=== PATIENT | female | born 2000 | race Two or more races ===

== ENCOUNTER 2025-05-07 07:03 | Emergency (ER) | payer MEDICAID ==
[~2025-05-07] VITALS: Ht 157.5 cm; Wt 73.9 kg
[2025-05-07 07:05] VITALS: TEMP 98.4
--- NOTE | 2025-05-07 07:34 | ED.PDOC ---
DIALYSIS TECHNICIAN HPI Comments A 25 YEAR OLD FEMALE PRESENTS TO THE ED WITH COMPLAINT OF RIGHT-SIDED PELVIC CRAMPING DURING . PATIENT STATES SHE IS CURRENTLY ABOUT 8 WEEKS AND BEGAN TO EXPERIENCE RIGHT-SIDED PELVIC PAIN OVER THE LAST 3 DAYS. PATIENT REPORTS SHE HAS A HISTORY OF AN ECTOPIC IN 2022, AND STATES HER PAIN IS SIMILAR TO WHEN SHE HAD THIS ECTOPIC , PROMPTING HER TO VISIT THE ED TODAY FOR EVALUATION. PATIENT DENIES VAGINAL BLEEDING/SPOTTING, DYSURIA, HEMATURIA, VAGINAL DISCHARGE, FEVER, CHILLS, SHORTNESS OF BREATH, CHEST PAIN, ABDOMINAL PAIN, NAUSEA, VOMITING, HEADACHE, OR OTHER COMPLAINTS. NO OTHER SYMPTOMS OR MODIFYING FACTORS AT THIS TIME. PATIENT IS ALERT, ORIENTED X 4, AND HAS STEADY GAIT. Chief Complaint: Time Seen by MD: 07:07 Reviewed Notes: Nurses Notes, Medications, Allergies Allergies: Coded Allergies: NO KNOWN ALLERGIES (Unverified , 07/26/10) Information Source: Patient Mode of Arrival: Ambulatory Timing: Days Prehospital treatment: None Severity: Moderate Vaginal Discharge: None Vaginal Lesions: None Vaginal Mass: None Onset Of Mass/Bleeding: Spontaneous Sexual Activity: Last Consensual Perley: Unknown Control: None History of: Current Blood Type: Unknown Symptoms of Possible : None Associated Signs and Symptoms: Cramping Past Medical History PAST MEDICAL HISTORY: Denies Surgical History: Denies all surgeries FORCE DISPATCHER History: Ectopic Family History Family History: Reviewed,noncontributory to illness Social History Smoker: Non-Smoker Alcohol: Denies ETOH Use Drugs: Denies Drug Use Lives In: Home Constitutional: denies: chills, diaphoresis, fatigue, fever, malaise, sweats, weakness, others EENTM: denies: blurred vision, double vision, ear bleeding, ear discharge, ear drainage, ear pain, ear ringing, eye pain, eye redness, hearing loss, mouth pain, mouth swelling, nasal discharge, nose bleeding, nose congestion, nose pain, photophobia, tearing, throat pain, throat swelling, voice changes, others Respiratory: denies: cough, hemoptysis, orthopnea, SOB at rest, shortness of breath, SOB with excertion, stridor, wheezing, others Cardiovascular: denies: chest pain, dizzy spells, diaphoresis, Dyspnea on exertion, edema, irregular heart beat, left arm pain, lightheadedness, palpitations, PND, syncope, others Gastrointestinal: denies: abdomen distended, abdominal pain, blood streaked bowels, constipated, diarrhea, dysphagia, difficulty swallowing, hematemesis, melena, nausea, poor appetite, poor fluid intake, rectal bleeding, rectal pain, vomiting, others Genitourinary: reports: pain (RIGHT-SIDED PELVIC PAIN), ; denies: abnormal vagina bleeding, burning, dyspareunia, dysuria, flank pain, frequency, hematuria, incontinence, vagina discharge, urgency, others Neurological: denies: dizziness, fainting, headache, left sided numbness, left sided weakness, numbness, paresthesia, pre-existing deficit, right sided numbness, right sided weakness, seizure, speech problems, tingling, tremors, weakness, others Musculoskeletal: denies: back pain, gout, joint pain, joint swelling, muscle pain, muscle stiffness, neck pain, others Integumetry: denies: bruises, change in color, change in hair/nails, dryness, laceration, lesions, lumps, rash, wounds, others Allergic/Immunocompromised: denies: Difficulty Healing, Frequent Infections, Hives, Itching, others Hematologic/Lymphatic: denies: anemia, blood clots, easy bleeding, easy bruising, swollen glands, others Endocrine: denies: excessive hunger, excessive sweating, excessive thirst, excessive urination, flushing, intolerance to cold, intolerance to heat, unexplained weight gain, unexplained weight loss, others Psychiatric: denies: anxiety, bipolar disorder, depression, hopeless, panic disorder, schizophrenia, sleepless, suicidal, others All Other Systems: Reviewed and Negative Physical Exam General Appearance: No Apparent Distress, Normal HEENT: Normal ENT Inspection, PERRL/EOMI, Pharynx Normal, TMs Normal Neck: Full Range of Motion, Non-Tender, Normal, Normal Inspection Respiratory: Chest Non-Tender, Lungs Clear, No Accessory Muscle Use, No Respiratory Distress, Normal Breath Sounds Cardiovascular: No Edema, No JVD, No Murmur, No Gallop, Normal Peripheral Pulses, Regular Rate/Rhythm Breast Exam: Deferred Gastrointestinal: No Organomegaly, Non Tender, No Pulsatile Mass, Normal Bowel Sounds, Soft Genitalia: Deferred Pelvic: Normal External Exam, Other (TENDERNESS RIGHT PELVIC, NO GUARDING AND R EBOUND TENDERNESS. ) Rectal: Deferred Extremities: No calf tenderness, Normal capillary refill, Normal inspection, Normal range of motion, Non-tender, No pedal edema Musculoskeletal : Apperance: Normal Neurologic: Alert, property maintenance technician II-XII nml as Tested, No Motor Deficits, Normal Affect, Normal Mood, No Sensory Deficits Cerebellar Function: Normal Reflexes: Normal Skin: Dry, Normal Color, Warm Peripheral Pulses: 2+ carotid (R), 2+ carotid (L) Lymphatic: No Adenopathy Was a procedure done? Was a procedure done?: No Differential Diagnosis (FORCE DISPATCHER) Vaginal Bleeding: Ectopic , UTI, Vaginitis, Other (OVARIAN CYST) Mass / Lesion: N/A Vaginal Discharge: N/A X-Ray, Labs, Meds, VS Vital Signs Date Time Temp Pulse Resp B/P (MAP) Pulse Ox O2 Delivery O2 Flow Rate FiO2 05/07/25 09:29 63 18 98 Room Air 05/07/25 09:29 63 18 125/59 (81) 98 05/07/25 07:05 98.4 69 18 137/67 98 98.4 Lab Test 05/07/25 07:50 05/07/25 07:32 Range/Units Urine Color Yellow Yellow Urine Clarity Turbid H Clear Urine pH 8.0 5.0-9.0 Urine Specific [place] 1.023 1.001-1.035 Urine Protein Trace H Negative Urine Ketones Negative Negative Urine Blood Negative Negative /uL Urine Nitrite Negative Negative Urine Bilirubin Negative Negative Urine Urobilinogen Normal Negative mg/dL Urine Leukocyte Esterase Negative Negative /uL Urine RBC 2 0 - 4 /hpf Urine Microscopic WBC < 1 0-5 /HPF Urine Squamous Epithelial Cells Few <5 /hpf Urine Bacteria Few H None Seen /hpf Urine Mucus Few None Seen Urine Glucose Normal Normal mg/dL White Blood Count 14.2 H 4.4-10.8 10^3/uL Red Blood Count 4.56 4.0-5.20 10^6/uL Hemoglobin 13.5 12.2-16.2 g/dL Hematocrit 38.9 36.0-46.0 % Mean Corpuscular Volume 85.3 80.0-100.0 fL Mean Corpuscular Hemoglobin 29.7 28.0-32.0 pg Mean Corpuscular Hemoglobin Concent 34.8 32.0-36.0 g/dL Red Cell Distribution Width 12.9 11.8-14.3 % Platelet Count 246 140-450 10^3/uL Mean Platelet Volume 8.5 6.9-10.8 fL Neutrophils (%) (Auto) 83.5 H 37.0-80.0 % Lymphocytes (%) (Auto) 10.8 10.0-50.0 % Monocytes (%) (Auto) 5.0 0.0-12.0 % Eosinophils (%) (Auto) 0.5 0.0-7.0 % Basophils (%) (Auto) 0.2 0.0-2.0 % Neutrophils # (Auto) 11.8 H 1.6-8.6 10 ^3/uL Lymphocytes # (Auto) 1.5 0.4-5.4 10 ^3/uL Monocytes # (Auto) 0.7 0-1.3 10 ^3/uL Eosinophils # (Auto) 0.1 0-0.8 10 ^3/uL Basophils # (Auto) 0 0-0.2 10 ^3/uL Nucleated Red Blood Cells 0.0 % Sodium Level 138 136-145 mmol/L Potassium Level 3.5 3.5-5.1 mmol/L Chloride Level 104 98-107 mmol/L Carbon Dioxide Level 23 20-31 mmol/L Anion Gap 11 5-15 Blood Urea Nitrogen 8 L 9-23 mg/dL Creatinine 0.52 L 0.550-1.02 mg/dL Glomerular Filtration Rate Calc 134 >90 mL/min BUN/Creatinine Ratio 15.4 10.0-20.0 Serum Glucose 82 74-106 mg/dL Calcium Level 9.4 8.7-10.4 mg/dL Beta HCG, Quantitative 34225.8 H 1.5-4.2 mIU/mL OB ULTRASOUND <14 WEEKS: HISTORY: RIGHT PELVIC PAIN, 8 WEEKS , HX OF ECTOPIC TECHNIQUE: Multiple real-time grayscale sonographic images of the pelvis with duplex Doppler color flow, spectral and M-mode analysis. TRANSDUCERS: Transvaginal COMPARISON: US OB TRANSVAGINAL on DOS: 04/20/23, US OB < 14 WKS on DOS: 04/20/23 FINDINGS: The uterus measures 8.8 x 7.0 x 7.2 cm The cervix is not visualized Right ovary measures 2.6 x 1.2 x 1.9 cm with normal Doppler color flow. Left ovary measures 4.2 x 3.1 x 3.3 cm with normal Doppler color flow. Left ovarian cyst measures 2.5 x 2.0 x 2.0 cm. IUP single fetus at 8 weeks and 1 day average ultrasound age based on mean crown-rump length of 1.7 cm and gestational sac size of 2.9 cm heart rate detected at 175 beats per minute. Yolk sac is present. Amniotic fluid is subjectively within normal limits Roberta-gestational space: Unremarkable IMPRESSION: IUP single live fetus 8 weeks and 1 day AUA corresponding to an PORSHA of 12/16/2025. No acute abnormality detected. ATED BY: MYLES JURADO MD DICTATED DATE/TIME: 05/07/25915 SIGNED BY: MYLES JURADO MD SIGNED DATE/TIME: 05/07/25915 CC: X-Ray, Labs, Meds, VS Comment EXTERNAL MEDICAL RECORDS REVIEWED: [NONE] INDEPENDENT HISTORIANS: [NONE] SOCIAL DETERMINANTS OF HEALTH: [NONE] LABS ORDERED: CBC, BMP, UA, BETA HCG QUANT REVIEWED AND INTERPRETED RESULTS: B HCG QUANT 94,738.8 IMAGING ORDERED: US OB < 14 WKS TREATMENTS ORDERED: NONE PROCEDURES PERFORMED: NONE CRITICAL CARE TIME: NONE I HAVE DISCUSSED THE PATIENT WITH THE ATTENDING PHYSICIAN DR. RICH AND HE AGREES WITH THE PATIENT'S PLAN OF CARE AND DISPOSITION. BASED ON HISTORY OF PRESENT ILLNESS, AND PHYSICAL EXAM, PATIENT WILL BE DISCHARGED HOME. DISCUSSED PLAN FOR DISCHARGE HOME WITH RX [TYLENOL]. MEDICATION WARNINGS GIVEN. SHARED DECISION MAKING: PATIENT INSTRUCTED TO FOLLOW UP WITH PRIMARY CARE PROVIDER IN 1-2 DAYS FOR RE-EVALUATION OF SYMPTOMS. PATIENT VERBALIZES UNDERSTANDING TO RETURN TO ED FOR NEW OR WORSENING SYMPTOMS OR IF FOLLOW UP WITH PCP CANNOT BE OBTAINED. PATIENT FEELS COMFORTABLE GOING HOME AT THIS TIME. ALL QUESTIONS ADDRESSED AT TIME OF DISCHARGE. Images Reviewed?: Images reviewed and evaluated by me Time of 1ST Reevaluation: 09:30 Reevaluation 1ST: Improved Patient Education/Counseling: Diagnosis, Treatment, Need For Follow Up Family Education/Counseling: Diagnosis, Treatment, Need For Follow Up Medical Screening: No EMC Exist At This Time Departure 1 Departure Time of Disposition: 09:30 Impression: Primary Impression: Pelvic cramping Additional Impression: Normal in first trimester Disposition: 01 HOME / SELF CARE / HOMELESS Condition: Stable Additional Instructions: FOLLOW-UP WITH PCP AND DIALYSIS TECHNICIAN IN 1 TO 2 DAYS. TAKE MEDICATIONS PRESCRIBED. RETURN TO ED FOR ANY NEW OR WORSENING SYMPTOMS. Discharged With: Self Critical Care Note Critical Care Time?: No Stability Stability form required: No I personally scribed for JULISSA MENJIVAR ([email or web address]) on 05/07/25 at 07:34. Electronically submitted by Corona Arias ([email or web address]). I personally scribed for JULISSA MENJIVAR ([email or web address]) on 05/07/25 at 09:24. Electronically submitted by Corona Arias ([email or web address]). JULISSA MENJIVAR May 07, 2025 07:34
[2025-05-07 07:50] LABS: Hematocrit 38.9 % (36.0-46.0); Hemoglobin 13.5 g/dL (12.2-16.2); Mean Corpuscular Hemoglobin 29.7 pg (28.0-32.0); Mean Corpuscular Volume 85.3 fL (80.0-100.0); Nucleated Red Blood Cells % 0.0 %
[2025-05-07 07:57] LABS: Chloride 104 mmol/L (98-107); Potassium 3.5 mmol/L (3.5-5.1); Sodium 138 mmol/L (136-145)
[2025-05-07 07:58] LABS: Anion Gap 11 (5-15); Carbon Dioxide 23 mmol/L (20-31)
[2025-05-07 07:59] LABS: Calcium 9.4 mg/dL (8.7-10.4)
[2025-05-07 08:03] LABS: BUN/Creatinine Ratio 15.4 (10.0-20.0); Glucose 82 mg/dL (74-106)
[2025-05-07 08:04] LABS: Blood Urea Nitrogen 8 mg/dL (9-23)
[2025-05-07 08:19] LABS: Urine Protein, UAD TRACE (Negative)
--- NOTE | 2025-05-07 09:18 | DVH ---
OB ULTRASOUND <14 WEEKS: HISTORY: RIGHT PELVIC PAIN, 8 WEEKS , HX OF ECTOPIC TECHNIQUE: Multiple real-time grayscale sonographic images of the pelvis with duplex Doppler color flow, spectral and M-mode analysis. TRANSDUCERS: Transvaginal COMPARISON: US OB TRANSVAGINAL on DOS: 04/20/23, US OB < 14 WKS on DOS: 04/20/23 FINDINGS: The uterus measures 8.8 x 7.0 x 7.2 cm The cervix is not visualized Right ovary measures 2.6 x 1.2 x 1.9 cm with normal Doppler color flow. Left ovary measures 4.2 x 3.1 x 3.3 cm with normal Doppler color flow. Left ovarian cyst measures 2.5 x 2.0 x 2.0 cm. IUP single fetus at 8 weeks and 1 day average ultrasound age based on mean crown-rump length of 1.7 cm and gestational sac size of 2.9 cm heart rate detected at 175 beats per minute. Yolk sac is present. Amniotic fluid is subjectively within normal limits [place]-gestational space: Unremarkable IMPRESSION: IUP single live fetus 8 weeks and 1 day AUA corresponding to an PORSHA of 12/16/2025. No acute abnormality detected.
[2025-05-07 09:29] VITALS: BP 125/59; PULSE 63; RESP 18; O2SAT 98
== END 2025-05-07 09:31 | disposition home or self-care (01) ==
LOC: ER 07:03
DX: O26.891 Other specified pregnancy related conditions, first trimester (principal); R10.21 Pelvic and perineal pain right side; Z3A.08 8 weeks gestation of pregnancy
CPT/HCPCS: 36415; 76801; 80048; 81001; 84702; 85025